=== PATIENT | male | born 1990 | race Caucasian/White ===

== ENCOUNTER 2019-07-07 10:39 | Day surgery (SDC) | payer OTHER, SELFPAY ==
[2019-07-06 12:34] VITALS: BMI 27.8
--- NOTE | 2019-07-07 | SCC_ITS ---
Procedure Done: Plantar plate repair left second metatarsal phalangeal joint. Hammertoe correction left second hammertoe. CPT code 28545 with 22 modifier 1 second of fluoroscopic guidance, for a cumulative dose of 0.03 mGy, was provided to Dr. Ríos by the radiology department. C-arm images of the LEFT foot were saved for the patient's permanent record. [facility]
--- NOTE | 2019-07-07 | XR_ITS ---
WS: [id number] INTRAOPERATIVE TECHNIQUE: 2 Spot fluoroscopic images for intraoperative purposes. FLUOROSCOPY TIME: 1] second CLINICAL INFORMATION: LEFT HAMMMER TOE CORRECTION COMPARISON: None. FINDINGS: Intraoperative changes fixation involving the second proximal phalanx. Normal alignment. XR/XR foot LT 2V [id number] IMPRESSION: Images obtained for intraoperative purposes.
[2019-07-07 10:59] VITALS: BP 133/65; PULSE 59; RESP 18; TEMP 36.8; O2SAT 98
[2019-07-07] MEDS: sodium chloride 0.9% 1,000 ML 30 ML IV (11:10)
--- NOTE | 2019-07-07 11:34 | ANES.PREANES ---
Pre-Anesthetic Assessment Pre-Anesthetic Assessment: Height/Weight: Height 1.8 m Weight 90.718 kg Temp Pulse Resp BP Pulse Ox 98.2 F 59 L 18 133/65 98 07/07/19 10:59 07/07/19 10:59 07/07/19 10:59 07/07/19 10:59 07/07/19 10:59 Preop Diagnosis: Rubenertoe Proposed Procedure: Operation Date: 07/07/19 12:15 Proposed Procedures p Hammertoe Correction(Left) - Lionel Ríos DPM s Plantar Plate Repair(Left) - Lionel Ríos DPM Familial anesthetic complications: No hx of anesthesia Was Beta Anya taken within 24 hours: N/A Last intake: Intake Last Liquid Date 07/06/19 Last Solid Date 07/06/19 [place] at 700 pm Last Intake: 19:00 Social: Social History: No alcohol and No tobacco Exam: Pre-Anes Outpt Exam: alert Airway: Cervical ROM: WNL MP: 2 Dentition: Full Pulmonary: Pulmonary: None reported CV/HEM: CV/HEM: None reported : : None reported Hepatic: Hepatic: None reported GI: GI: None reported Metabolic: Metabolic: None reported Musc/skel: Musc/skel: None reported Neuropsych: Neuropsych: None reported Anesthetic Plan: ASA status: I Anesthesia: MAC Risk of > 500 ml blood loss (7ml/kg in children): No Meds/Allergies Current Medications: Current Medications Generic Name Dose Route Start Last Admin Trade Name Freq PRN Reason Stop Dose Admin Sodium Chloride 1,000 mls @ 30 ml s/hr 07/07/19 11:00 07/07/19 11:10 Sodium Chloride 0.9% IV 07/08/19 10:59 30 mls/hr .Q24H MARGY Administration Data Anesthesia Cardiac Studies: No Data to Display
--- NOTE | 2019-07-07 13:02 | PM.OP ---
Operative Report Post-Operative Note Date of procedure: 07/08/19 Preop Diagnosis: Pre-dislocation syndrome foot second metatarsal phalangeal joint. Hammertoe left second toe. Metatarsalgia left foot. Post-op diagnosis: same Post-op Findings: Plantar plate tear left second metatarsal phalangeal joint Procedure Done: Plantar plate repair left second metatarsal phalangeal joint. Hammertoe correction left second hammertoe. CPT code 26319 with 22 modifier Implants: [place] 28 [place] size medium Specimens removed/disposition: None Pathology: none sent Surgeon: Lionel Ríos Anesthesia: MAC Estimated blood loss (mL): 5 IV fluids (mL): 0 Urine output (mL): 0 Complications: None Findings: Plantar plate tear left second metatarsal phalangeal joint. Condition: stable Disposition: PACU Operative Report Brief History: Patient is a pleasant 28-year-old male with persistent pain at his left second metatarsal phalangeal joint he does have a history of injury to this area. Pain is increased with activity. He leads an active lifestyle works full-time also has a history of running. He has not participated in running activities recently and states that his left foot pain has contributed to his lifestyle and hobbies. Recently patient states that his pain is increased and he would like to discuss surgical options as he has failed conservative treatment consisting of [id number] NSAIDs, padding, variety of supportive shoes and stretching exercises. Surgical intervention would entail direct repair of plantar plate left second metatarsal phalangeal joint with hammertoe repair plan on Teno[place]ac in order to bolster the plantar plate repair. Risks include pain, bleeding, numbness, infection, failure to correct deformity, overcorrection of deformity, failure to alleviate pain, transfer pressure and transfer lesions, damage to adjacent soft tissue structures, numbness, loss of function, hardware failure, painful retained hardware, need for further surgical intervention. Patient is agreeable and wishes to proceed. Procedure: Under mild sedation the patient was brought to the operating room and placed on the operating table in supine position. A timeout was performed. Anesthesia was then administered by the anesthesia service. Local anesthesia was injected by myself consisting of 20 cc of 0.5% Marcaine plain and a left second ray block fashion. Well-padded pneumatic tourniquet was applied to the left ankle. Left lower extremity was then scrubbed, prepped and draped utilizing normal aseptic technique. Left foot was then examined a weighted with a Esmarch bandage and the tourniquet was inflated to 250 mmHg. Attention was then directed to the plantar aspect of the left second metatarsal phalangeal joint where a linear longitudinal incision was made through skin with a #15 blade dissection was carried down through subcutaneous tissue utilizing a combination of blunt and sharp technique. Care was taken to retract and preserve neurovascular and tendinous structures. All bleeders were ligated and cauterized as necessary. Dissection was carried down through the fat layer which was then retracted utilizing a self-retaining retractor. Flexor tendons were identified and retracted medially dissection was carried down to the left second metatarsal phalangeal joint capsule. At the lateral aspect of the plantar left second metatarsal joint there was fibrosing and scar tissue appreciated this was excised sharply and passed from the operative field. Linear capsular incision was performed and dissection meticulously was carried about the intracapsular structure revealing a tear of the lateral aspect of the plantar plate this was excised to healthy margins and reapproximated to the base of the proximal phalanx plantar fascial attachment directly utilizing 4-0 Prolene. Following plantar plate repair the repair was bolstered with a flexor tendon stabilization implant provided by Katie Saldana utilizing aircraft engine mechanic overhaul recommendations TenoTac was inserted from plantar to dorsal with a stab incision dorsally to allow for implant fixation this was performed with the second toe extended in a rectus position. Improved stability and alignment of the left second toe was appreciated and the incision sites were flushed with saline solution. Dorsal incision was closed with 4-0 Prolene. Plantar incision was closed with 2-0 Vicryl deep followed by 4-0 Vicryl subcutaneous tissue and 4-0 Prolene for skin closure. Incision sites were dressed with Adaptic, 4 x 4's, Kerlix and Gary wrap. Tourniquet was then deflated and a prompt hyperemic response was noted to the distal digits of the left foot. Patient tolerated the procedure and anesthesia well and was transferred to the PACU with vital signs stable and vascular status intact. Following a period of postoperative monitoring he will be discharged home, he is accompanied by his . He is provided a prescription for Percocet 5/325 mg as well as Zofran to be taken judiciously as needed for pain. He is to be nonweightbearing to the left lower extremity and has a cam boot for protection. He was provided an order for crutches which his was able to fill. Patient is to elevate his left foot above the hip while at rest. Patient provided my cell phone number and is to contact me with postoperative questions or concerns.
--- NOTE | 2019-07-07 13:08 | P.PN_ITS ---
Subjective Subjective: Interval history: Patient is a pleasant 28-year-old male who presents with ongoing chronic foot pain left second metatarsal phalangeal joint with known injury and avulsion fracture. Patient leads active lifestyle he works full-time enjoys running he is unable to do this because of pain with activity. He has exhausted conservative measures consisting of strap down bracing, sturdy shoes, orthotics, activity modifications and NSAIDs. He is accompanied by his I am evaluating him preoperatively. Patient denies any subjective nausea, vomiting, fever, chills, shortness of breath or chest pain. Vitals/I&O/Wt Last Vital Signs Temp 98.2 F 07/07/19 10:59 Pulse 59 L 07/07/19 10:59 Resp 18 07/07/19 10:59 BP 133/65 07/07/19 10:59 Pulse Ox 98 07/07/19 10:59 Weight last 48 hrs Weight 200 lb Physical Exam Narrative: EXAM NARRATIVE: GENERAL: Patient is in no acute distress, conversant. PSYCH: Patient is alert and oriented to person, place and time. HEENT: PERRL. Clear sclera. No rhinitis. Moist mucous membranes of oral cavity. CARDIOVASCULAR: S1, S2, normal rhythm, no murmur, rub, or gallop. Dorsalis pedis and posterior tibial arteries palpable +2. ?Capillary refill time less than 3 seconds to the distal hallux bilaterally. Calf is supple and nontender proximally and distally. ?He went to the lower extremities. ?Pedal hair growth present. LUNGS: Clear to auscltation, no use of acessory muscles, no crackles or wheezes. LYMPHATIC: No lymphadenopathy. NEUROLOGICAL: Epicritic and protopathic sensations grossly intact to the lower extremities. ?+2 Achilles tendon reflex noted bilaterally. ?Negative Tinel sign upon percussion of lower extremity nerves. DERMATOLOGICAL: Lower extremity skin is well-hydrated, normal texture and turgor. ?There are no open sores or lesions noted to the lower extremities. ?No erythema or ecchymosis present to the bilateral legs and feet. MUSCULOSKELETAL: Pain to palpation at plantar aspect of left second metatarsal- phalangeal joint. ?Left second toe is medially deviated this is exacerbated by loading the forefoot. ?Pain with and range of dorsiflexion left second metatarsal-phalangeal joint. ?Left second metatarsal-phalangeal joint range of motion is smooth without crepitus. ?Muscle strength is 5/5 in all 3 cardinal planes pain-free without guarding to the lower extremities. ?5? of dorsiflexion beyond neutral with knee flexed this is decreased with knee extended down to neutral. Pain with anterior drawer sign which demonstrates laxity at the left second metatarsal-phalangeal joint. 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 Patient will proceed with a left 2nd toe hammer toe correction and plantar plate repair. He will follow up after surgery. Will has updated H&P from primary care 30 days prior to surgery, will be outpatient under MAC anesthesia. Planning on [place] [address] [place], plantar incision with primary repair of plantar plate this may include excision of avulsion fracture loose body, may also require small bone anchor. Risks include pain, bleeding, numbness, infection, painful scar, hypertrophic scar, recurrence of deformity, failure to alleviate pain, failure to correct deformity and need for further surgical intervention. Patient wishes to proceed. Status: Acute Code(s): M25.872 - Other specified joint disorders, left ankle and foot Attestations Medical Necessity Statement*: Pre-dislocation syndrome with plantar plate tear and associated avulsion fracture left second metatarsal phalangeal joint with chronic pain. 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
[2019-07-07 14:38] VITALS: BP 96/46; PULSE 69; RESP 18; TEMP 36.1; O2SAT 100
[2019-07-07 15:08] VITALS: BP 105/62; PULSE 59; RESP 18; TEMP 36.1; O2SAT 99
--- NOTE | 2019-07-07 15:56 | ANE.PACU ---
 Inpatient post-anesthesia follow up: Airway intact: Yes Vital signs: Temperature 97 F Pulse Rate [Right] 59 Respiratory Rate 18 Blood Pressure [Le ft Arm] 105/62 Pulse Oximetry 99 Oxygen Delivery Me thod Room Air Oxygen Flow Rate 6 Fraction of Inspir ed Oxygen Hydration adequate: Yes Nausea and vomiting: No Mental status: Baseline
== END 2019-07-07 16:22 | disposition home or self-care (01) ==
PROVIDERS: Family Provider Electrodiagnostic Medicine; PCP Electrodiagnostic Medicine; Visit Provider Podiatrist Foot & Ankle Surgery
PROC: (CPT 28285; principal; 2019-07-07 12:10)
PROC: (CPT 28899; 2019-07-07 12:10)
DX: S93.525A Sprain of metatarsophalangeal joint of left lesser toe(s), initial encounter (principal); X58.XXXA Exposure to other specified factors, initial encounter; M20.42 Other hammer toe(s) (acquired), left foot; M77.42 Metatarsalgia, left foot; Z82.49 Family history of ischemic heart disease and other diseases of the circulatory system; Z83.3 Family history of diabetes mellitus
CPT/HCPCS: 28285; 73620; 76000; 96365; C1713; J0690; J2001; J2250; J2704; J3010; J3490; J7030

== ENCOUNTER → 2019-08-16 09:43 | Outpatient (BNVA) | payer OTHER, SELFPAY | PROVIDERS: Family Provider Electrodiagnostic Medicine; PCP Electrodiagnostic Medicine; Visit Provider Podiatrist Foot & Ankle Surgery | DX: Z98.890 Other specified postprocedural states (principal) | CPT/HCPCS: 73630 ==

== ENCOUNTER → 2020-04-16 10:02 | Outpatient (BNVA) | payer OTHER, SELFPAY | PROVIDERS: Family Provider Electrodiagnostic Medicine; PCP Occupational Therapy Assistant; Visit Provider Nurse Practitioner Family | DX: Z01.812 Encounter for preprocedural laboratory examination (principal); Z20.828 Contact with and (suspected) exposure to other viral communicable diseases | CPT/HCPCS: 87426 ==

== ENCOUNTER 2021-09-27 20:25 | Emergency (ER) | payer OTHER, SELFPAY ==
[2021-09-27 20:35] VITALS: BP 137/84; PULSE 66; RESP 18; TEMP 36.9; O2SAT 98; BMI 29.8
[2021-09-27 21:04] LABS: Basophils % 0.4 %; Eosinophils # 0.1 10^3/uL (0.0-0.8); Eosinophils % 0.7 %; Hemoglobin 16.1 g/dL (11.7-16.6); Lymphocytes # 1.9 10^3/uL (0.8-4.8); Lymphocytes % 24.9 %; Mean Corpuscular HGB Conc 33.5 g/dL (30.0-36.0); Mean Corpuscular Hemoglobin 30.4 pg (28.0-34.0); Mean Corpuscular Volume 90.7 fl (80-94); Mean Platelet Volume 9.1 fL (7.4-10.4); Monocytes # 0.6 10^3/uL (0.2-0.9); Monocytes % 7.7 %; Neutrophils # 4.99 10^3/uL (1.8-7.7); Neutrophils % 66.2 %; Nucleated Red Blood Cells % 0 %; Platelet Count 238 10^3/cmm (130-400); Red Blood Count 5.29 10^6/uL (4.1-5.3); Red Cell Distribution Width 11.4 % (12.1-15.1); White Blood Count 7.5 10^3/uL (4.0-10.0)
[2021-09-27 21:19] LABS: Add Urine Microscopic? YES; Bilirubin Urine Neg (Negative); Blood Urine 2+ (Negative); Glucose Urine UA Norm (Normal); Ketones Urine Negative (Negative); Leukocyte Esterase Urine 1+ (Negative); Nitrate Urine Negative (Negative); Protein Urine Trace (Negative); Urine Appearance Clear (CLEAR); Urine Color Yellow (Yellow); Urobilinogen Urine 1 mg/dL (Negative); pH Urine 6.5 (5-7)
[2021-09-27 21:20] LABS: Add Urine Culture? No; Bacteria Urine TRACE /hpf; Mucus Urine 2+ /hpf; RBC Urine 0-4 /hpf (0-2); Squamous Epithelial Cell Urine 0-4 /hpf (0-5); WBC Urine 0-4 /hpf (0-5)
[2021-09-27 21:35] LABS: Albumin Level 4.8 g/dL (3.5-5.2); Alkaline Phosphatase 78 IU/L (40-130); Blood Urea Nitrogen 9 mg/dL (6-20); Calcium 9.5 mg/dL (8.5-10.5); Carbon Dioxide 29 mmol/L (22-29); Chloride 98 mmol/L (98-107); Glomerular Filtration Rate 157.1 mL/min (90-130); Glucose 100 mg/dL (65-115); Lipase 18 U/L (13-60); Osmolality Calculated 279 mOsm/kg (285-295); Sodium 135 mmol/L (136-145); Total Bilirubin 0.4 mg/dL (0.15-1.2); Total Protein 7.8 g/dL (6.6-8.7)
[2021-09-27 21:37] LABS: Alanine Aminotransferase 43 U/L (0-41); Anion Gap 12.4 (5-19); Aspartate Amino Transferase 34 U/L (0-40); Potassium 4.4 mmol/L (3.5-5.1)
--- NOTE | 2021-09-27 21:44 | CTR_ITS ---
PROCEDURE INFORMATION: Exam: CT Abdomen And Pelvis Without Contrast Exam date and time: 09/27/2021 10:53 PM Age: 30 years old Clinical indication: Abdominal pain; Flank; Right upper quadrant (ruq); Patient HX: C/O R sided abd pain TECHNIQUE: Imaging protocol: Computed tomography of the abdomen and pelvis without contrast. Radiation optimization: All CT scans at this facility use at least one of these dose optimization techniques: automated exposure control; mA and/or kV adjustment per patient size (includes targeted exams where dose is matched to clinical indication); or iterative reconstruction. COMPARISON: No relevant prior studies available. RADIATION DOSE METRICS: Total DLP (mGy-cm): 1483.5 FINDINGS: Lungs: The lung bases appear unremarkable. Liver: The liver is unremarkable in appearance. Gallbladder and bile ducts: No calcified gallstones in the gallbladder. No gallbladder wall thickening. No pericholecystic fluid. No biliary dilatation. Pancreas: The pancreas is normal in appearance. No pancreatic duct dilatation. Spleen: The spleen is normal in size and appearance. Adrenal glands: The adrenal glands appear within normal limits. Kidneys and ureters: The kidneys are morphologically normal. No nephrolithiasis. No hydronephrosis. No ureteral calculi. No obstructive uropathy. Stomach and bowel: No acute gastric abnormality demonstrated. The small bowel is unremarkable as demonstrated. No acute abnormality/inflammatory change of the colon. Appendix: The appendix is normal in appearance. No evidence of appendicitis. Intraperitoneal space: No pneumoperitoneum. No significant fluid collection. Vasculature: No abdominal aortic aneurysm. Lymph nodes: No pathologically enlarged lymph nodes. Urinary bladder: The urinary bladder is unremarkable in appearance. Reproductive: Unremarkable as visualized. Bones/joints: No fracture or other acute osseous abnormality. Soft tissues: Unremarkable. CT/CT kidney stone [id number] IMPRESSION: No acute abnormality demonstrated in the abdomen and pelvis.
--- NOTE | 2021-09-27 22:09 | W.ED.ABDPA2 ---
Documented by User: PONCHO Maravilla 09/27/21 23:38 HPI - Abdominal Pain General: Chief Complaint: Abdominal Pain Stated Complaint: Possible Gallstones Time Seen by Provider: 09/27/21 22:09 History of Present Illness: 30-year-old male patient comes in today with complaints of left abdominal pain radiating to his left flank. Patient reports pain on and off for about a week. Patient reports that nothing improves pain or worsens pain. Patient appears nontoxic. Patient appears in mild to no pain. Patient reports that the pain radiates from his left abdomen to his left flank area. Patient has recently been put on some Prilosec for some similar type pain more in the epigastric area. Patient's physician thought that maybe it was his gallbladder. MD elicited complaint: abdominal pain Pertinent past history: none Onset (ago): day(s) Pain Consistency: intermittent Location: LLQ Migration to: L flank Exacerbating factors: nothing Associated Symptoms: Reports chills and nausea; Denies diarrhea and vomiting Review of Systems General: Reports: 10 or more systems reviewed and unremarkable except in HPI and below Const: Reports: chills Card: Denies: chest pain Resp: Denies: dyspnea GI: Reports: nausea; Denies: vomiting or diarrhea : Reports: flank pain Musc: Reports: back pain; Denies: neck pain Skin/Breast: Denies: rash PFSH ED PFSH: Family History Denies family history of Diabetes CAD (coronary artery disease) Clotting disorder Dementia Hyperlipidemia Psychiatric illness Chronic kidney disease (CKD) Suicide Anesthesia complication Bleeding disorder Family history of premature coronary artery disease Lung disease Cancer Hypertension Stroke Social History Smoking and tobacco status: never smoked Alcohol intake: never Physical Exam Const: COMMON NORMALS: alert HENMT: COMMON NORMALS: normocephalic HEAD & SCALP: normocephalic Neck/C-Spine: COMMON NORMALS: full ROM Resp: COMMON NORMALS: normal respiratory effort and clear to auscultation bilaterally AUSCULTATION: clear to auscultation bilaterally Cardio: COMMON NORMALS: regular rate and regular rhythm RATE: regular rate RHYTHM: regular rhythm GI: COMMON NORMALS: Soft to palpation AUSCULTATION: Yes normoactive bowel sounds PALPATION: Yes Soft to palpation and No Tenderness to palpation present (GI) : COMMON NORMALS: Yes no CVA tenderness BLADDER/KIDNEY EXAM: Yes no CVA tenderness Back/Pelvis: COMMON NORMALS: no CVA tenderness Extremity: COMMON NORMALS: normal to inspection Neuro: SENSORIUM/ORIENTATION: Yes alert Psych: COMMON NORMALS: cooperative Skin: COMMON NORMALS: no rashes or lesions noted GENERAL SKIN EXAM: no rashes or lesions noted Course Vital Signs: Vital signs: Vital Signs Temperature 98.4 F 09/28/21 00:12 Pulse Rate 88 09/28/21 00:12 Respiratory Rate 18 09/28/21 00:12 Blood Pressure 130/72 09/28/21 00:12 Pulse Oximetry 99 09/28/21 00:12 MDM - Abdominal Pain Medical Decision Making 30-year-old male patient comes in today with some left lower abdominal pain radiating to left flank. On exam respirations are even lungs are clear to auscultation. Abdomen soft with no tenderness on deep palpation. Bowel sounds are present. Vital signs are normal. Differential diagnosis includes but not limited to diverticulitis, gastroenteritis, constipation, renal calculi. Laboratory values noted no elevation in white blood cell count. CMP was unremarkable. Liver enzymes were unremarkable. CT of the abdomen pelvis for renal stones showed no renal stones or other significant abdominal abnormality. Patient did have some calcifications noted on his prostate that I visualized although this was not noted in the CT report. Patient's urine did show some trace of white blood cells and hematuria with leukocyte esterase. I suspect may be a prostatitis we will treat with Cipro 500 twice a day for 7 days. Patient was recommended to follow-up with primary care in 3 to 5 days for further evaluation and treatment return to the ER for worsening symptoms or new concerns. Lab Data : 09/27/21 20:54 09/27/21 20:54 Labs/Radiology: Radiology Impressions Abdomen/Pelvis CT 09/27/21 21:44 IMPRESSION: No acute abnormality demonstrated in the abdomen and pelvis. Laboratory Results WBC 7.5 10^3/uL (4.0-10.0) 09/27/21 20:54 RBC 5.29 10^6/uL (4.1-5.3) 09/27/21 20:54 Hgb 16.1 g/dL (11.7-16.6) 09/27/21 20:54 Hct 48.0 % (42.0-52.0) 09/27/21 20:54 MCV 90.7 fl (80-94) 09/27/21 20:54 MCH 30.4 pg (28.0-34.0) 09/27/21 20:54 MCHC 33.5 g/dL (30.0-36.0) 09/27/21 20:54 RDW 11.4 % (12.1-15.1) L 09/27/21 20:54 Plt Count 238 10^3/cmm (130-400) 09/27/21 20:54 MPV 9.1 fL (7.4-10.4) 09/27/21 20:54 Neut % (Auto) 66.2 % 09/27/21 20:54 Lymph % (Auto) 24.9 % 09/27/21 20:54 [place] % (Auto) 7.7 % 09/27/21 20:54 Eos % (Auto) 0.7 % 09/27/21 20:54 Baso % (Auto) 0.4 % 09/27/21 20:54 Neut # (Auto) 4.99 10^3/uL (1.8-7.7) 09/27/21 20:54 Lymph # (Auto) 1.9 10^3/uL (0.8-4.8) 09/27/21 20:54 [place] # (Auto) 0.6 10^3/uL (0.2-0.9) 09/27/21 20:54 Eos # (Auto) 0.1 10^3/uL (0.0-0.8) 09/27/21 20:54 Baso # (Auto) 0.0 10^3/uL (0.0-0.1) 09/27/21 20:54 Nucleated RBC % (auto) 0 % 09/27/21: Nucleated RBCs # 0.0 /100WBC 09/27/21 20:54 Sodium 135 mmol/L (136-145) L 09/27/21 20:54 Potassium 4.4 mmol/L (3.5-5.1) 09/27/21 20:54 Chloride 98 mmol/L (98-107) 09/27/21 20:54 Carbon Dioxide 29 mmol/L (22-29) 09/27/21 20:54 Anion Gap 12.4 (5-19) 09/27/21 20:54 BUN 9 mg/dL (6-20) 09/27/21 20:54 Creatinine 0.6 mg/dL (0.7-1.2) L 09/27/21 20:54 GFR Calculation 157.1 mL/min (90-130) H 09/27/21 20:54 Glucose 100 mg/dL (65-115) 09/27/21 20:54 Calculated Osmolality 279 mOsm/kg (285-295) L 09/27/21 20:54 Calcium 9.5 mg/dL (8.5-10.5) 09/27/21 20:54 Total Bilirubin 0.4 mg/dL (0.15-1.2) 09/27/21 20:54 AST 34 U/L (0-40) 09/27/21 20:54 ALT 43 U/L (0-41) H 09/27/21 20:54 Alkaline Phosphatase 78 IU/L (40-130) 09/27/21 20:54 Total Protein 7.8 g/dL (6.6-8.7) 09/27/21 20:54 Albumin 4.8 g/dL (3.5-5.2) 09/27/21 20:54 Globulin 3.0 g/dL (1.3-4.6) 09/27/21 20:54 Lipase 18 U/L (13-60) 09/27/21 20:54 Urine Color Yellow (Yellow) 09/27/21 20:54 Urine Appearance Clear (CLEAR) 09/27/21 20:54 Urine pH 6.5 (5-7) 09/27/21 20:54 Ur Specific Brilliant 1.010 (1.005-1.030) 09/27/21 20:54 Urine Protein Trace (Negative) 09/27/21 20:54 Urine Glucose (UA) Norm (Normal) 09/27/21 20:54 Urine Ketones Negative (Negative) 09/27/21 20:54 Urine Blood 2+ (Negative) H 09/27/21 20:54 Urine Nitrate Negative (Negative) 09/27/21 20:54 Urine Bilirubin Neg (Negative) 09/27/21 20:54 Urine Urobilinogen 1 mg/dL (Negative) H 09/27/21 20:54 Ur Leukocyte Esterase 1+ (Negative) H 09/27/21 20:54 Urine RBC 0-4 /hpf (0-2) H 09/27/21 20:54 Urine WBC 0-4 /hpf (0-5) H 09/27/21 20:54 Ur Squamous Epith Cells 0-4 /hpf (0-5) H 09/27/21 20:54 Amorphous Sediment Not Reportable 09/27/21 20:54 Urine Bacteria Trace /hpf (NONE) 09/27/21 20:54 Urine Mucus 2+ /hpf 09/27/21 20:54 Discharge Plan Discharge Patient Disposition: Home Clinical Impression: Abdominal pain Qualifiers: Abdominal location: left lower quadrant Qualified Code(s): R10.32 - Left lower quadrant pain Hematuria Qualifiers: Hematuria type: unspecified type Qualified Code(s): R31.9 - Hematuria, unspecified Condition: Stable Prescriptions: New ciprofloxacin HCl 500 mg tablet 500 mg PO BID Qty: 14 0RF Discharge Orders: Discharge ED (Routine); Ordered 09/27/21 Ordered By: Festus Chawla Discharge Diet: Usual diet Discharge Activity: Increase activity as tolerated Patient Instructions: Abdominal Pain (ED) Activity Restrictions/Additional Instructions: Drink plenty of water. Take antibiotic twice a day for the next 7 days. Follow-up with primary care in 3 to 5 days for recheck of urine. Return to ER for worsening symptoms such as uncontrolled pain, blood in vomit or stool, fever greater than 100.4. Coding Level of Care Code ED Domestic Violence Advocate for Chg Fwd Exam Comprehensive Documented by User: Harsha Alexis DO 09/28/21 01:01 HPI - Abdominal Pain General: Chief Complaint: Abdominal Pain Stated Complaint: Possible Gallstones Time Seen by Provider: 09/27/21 22:09 PFS ED PFSH: Family History Denies family history of Diabetes CAD (coronary artery disease) Clotting disorder Dementia Hyperlipidemia Psychiatric illness Chronic kidney disease (CKD) Suicide Anesthesia complication Bleeding disorder Family history of premature coronary artery disease Lung disease Cancer Hypertension Stroke Social History Smoking and tobacco status: never smoked Alcohol intake: never Course Vital Signs: Vital signs: Vital Signs Temperature 98.4 F 09/28/21 00:12 Pulse Rate 88 09/28/21 00:12 Respiratory Rate 18 09/28/21 00:12 Blood Pressure 130/72 09/28/21 00:12 Pulse Oximetry 99 09/28/21 00:12 MDM - Abdominal Pain Medical Decision Making 30-year-old male patient comes in today with some left lower abdominal pain radiating to left flank. On exam respirations are even lungs are clear to auscultation. Abdomen soft with no tenderness on deep palpation. Bowel sounds are present. Vital signs are normal. Differential diagnosis includes but not limited to diverticulitis, gastroenteritis, constipation, renal calculi. Laboratory values noted no elevation in white blood cell count. CMP was unremarkable. Liver enzymes were unremarkable. CT of the abdomen pelvis for renal stones showed no renal stones or other significant abdominal abnormality. Patient did have some calcifications noted on his prostate that I visualized although this was not noted in the CT report. Patient's urine did show some trace of white blood cells and hematuria with leukocyte esterase. I suspect may be a prostatitis we will treat with Cipro 500 twice a day for 7 days. Patient was recommended to follow-up with primary care in 3 to 5 days for further evaluation and treatment return to the ER for worsening symptoms or new concerns. This patient was originally seen by PONCHO Jones.? I agree with his history, evaluation, and treatment. Lab Data : 09/27/21 20:54 09/27/21 20:54 Labs/Radiology: Radiology Impressions Abdomen/Pelvis CT 09/27/21 21:44 IMPRESSION: No acute abnormality demonstrated in the abdomen and pelvis. Laboratory Results WBC 7.5 10^3/uL (4.0-10.0) 09/27/21 20:54 RBC 5.29 10^6/uL (4.1-5.3) 09/27/21 20:54 Hgb 16.1 g/dL (11.7-16.6) 09/27/21 20:54 Hct 48.0 % (42.0-52.0) 09/27/21 20:54 MCV 90.7 fl (80-94) 09/27/21 20:54 MCH 30.4 pg (28.0-34.0) 09/27/21 20:54 MCHC 33.5 g/dL (30.0-36.0) 09/27/21 20:54 RDW 11.4 % (12.1-15.1) L 09/27/21 20:54 Plt Count 238 10^3/cmm (130-400) 09/27/21 20:54 MPV 9.1 fL (7.4-10.4) 09/27/21 20:54 Neut % (Auto) 66.2 % 09/27/21 20:54 Lymph % (Auto) 24.9 % 09/27/21 20:54 [place] % (Auto) 7.7 % 09/27/21 20:54 Eos % (Auto) 0.7 % 09/27/21 20:54 Baso % (Auto) 0.4 % 09/27/21 20:54 Neut # (Auto) 4.99 10^3/uL (1.8-7.7) 09/27/21 20:54 Lymph # (Auto) 1.9 10^3/uL (0.8-4.8) 09/27/21 20:54 [place] # (Auto) 0.6 10^3/uL (0.2-0.9) 09/27/21 20:54 Eos # (Auto) 0.1 10^3/uL (0.0-0.8) 09/27/21 20:54 Baso # (Auto) 0.0 10^3/uL (0.0-0.1) 09/27/21 20:54 Nucleated RBC % (auto) 0 % 09/27/21: Nucleated RBCs # 0.0 /100WBC 09/27/21 20:54 Sodium 135 mmol/L (136-145) L 09/27/21 20:54 Potassium 4.4 mmol/L (3.5-5.1) 09/27/21 20:54 Chloride 98 mmol/L (98-107) 09/27/21 20:54 Carbon Dioxide 29 mmol/L (22-29) 09/27/21 20:54 Anion Gap 12.4 (5-19) 09/27/21 20:54 BUN 9 mg/dL (6-20) 09/27/21 20:54 Creatinine 0.6 mg/dL (0.7-1.2) L 09/27/21 20:54 GFR Calculation 157.1 mL/min (90-130) H 09/27/21 20:54 Glucose 100 mg/dL (65-115) 09/27/21 20:54 Calculated Osmolality 279 mOsm/kg (285-295) L 09/27/21 20:54 Calcium 9.5 mg/dL (8.5-10.5) 09/27/21 20:54 Total Bilirubin 0.4 mg/dL (0.15-1.2) 09/27/21 20:54 AST 34 U/L (0-40) 09/27/21 20:54 ALT 43 U/L (0-41) H 09/27/21 20:54 Alkaline Phosphatase 78 IU/L (40-130) 09/27/21 20:54 Total Protein 7.8 g/dL (6.6-8.7) 09/27/21 20:54 Albumin 4.8 g/dL (3.5-5.2) 09/27/21 20:54 Globulin 3.0 g/dL (1.3-4.6) 09/27/21 20:54 Lipase 18 U/L (13-60) 09/27/21 20:54 Urine Color Yellow (Yellow) 09/27/21 20:54 Urine Appearance Clear (CLEAR) 09/27/21 20:54 Urine pH 6.5 (5-7) 09/27/21 20:54 Ur Specific [place] 1.010 (1.005-1.030) 09/27/21 20:54 Urine Protein Trace (Negative) 09/27/21 20:54 Urine Glucose (UA) Norm (Normal) 09/27/21 20:54 Urine Ketones Negative (Negative) 09/27/21 20:54 Urine Blood 2+ (Negative) H 09/27/21 20:54 Urine Nitrate Negative (Negative) 09/27/21 20:54 Urine Bilirubin Neg (Negative) 09/27/21 20:54 Urine Urobilinogen 1 mg/dL (Negative) H 09/27/21 20:54 Ur Leukocyte Esterase 1+ (Negative) H 09/27/21 20:54 Urine RBC 0-4 /hpf (0-2) H 09/27/21 20:54 Urine WBC 0-4 /hpf (0-5) H 09/27/21 20:54 Ur Squamous Epith Cells 0-4 /hpf (0-5) H 09/27/21 20:54 Amorphous Sediment Not Reportable 09/27/21 20:54 Urine Bacteria Trace /hpf (NONE) 09/27/21 20:54 Urine Mucus 2+ /hpf 09/27/21 20:54 Discharge Plan Discharge Patient Disposition: Home Clinical Impression: Abdominal pain Qualifiers: Abdominal location: left lower quadrant Qualified Code(s): R10.32 - Left lower quadrant pain Hematuria Qualifiers: Hematuria type: unspecified type Qualified Code(s): R31.9 - Hematuria, unspecified Condition: Stable Prescriptions: New ciprofloxacin HCl 500 mg tablet 500 mg PO BID Qty: 14 0RF Discharge Orders: Discharge ED (Routine); Ordered 09/27/21 Ordered By: Festus Chawla Discharge Diet: Usual diet Discharge Activity: Increase activity as tolerated Patient Instructions: Abdominal Pain (ED) Activity Restrictions/Additional Instructions: Drink plenty of water. Take antibiotic twice a day for the next 7 days. Follow-up with primary care in 3 to 5 days for recheck of urine. Return to ER for worsening symptoms such as uncontrolled pain, blood in vomit or stool, fever greater than 100.4. Coding Level of Care Code ED Domestic Violence Advocate for [place] Fwd Exam Comprehensive
[2021-09-28 00:12] VITALS: BP 130/72; PULSE 88; RESP 18; TEMP 36.9; O2SAT 99
[2021-09-28] MEDS: ciprofloxacin 500 mg Tablet PO (00:12)
== END 2021-09-28 00:13 | disposition home or self-care (01) ==
PROVIDERS: Emergency Medicine; Emergency Provider Nurse Practitioner Family
DX: R10.32 Left lower quadrant pain (principal); R31.9 Hematuria, unspecified; R93.89 Abnormal findings on diagnostic imaging of other specified body structures
CPT/HCPCS: 74176; 80053; 81001; 83690; 85025; 99283